=== PATIENT | female | born 1985 | race Caucasian/White ===

== ENCOUNTER 2024-03-10 07:32 | Outpatient (CLI) | payer MEDICAID ==
--- NOTE | 2024-03-10 19:21 | Ultrasound Report ---
PROCEDURE: Abdomen Complete INDICATIONS: LOWER ABD PAIN TECHNIQUE: Real-time scanning was performed of the abdominal and retroperitoneal organs, with image documentatio n. COMPARISON: Pelvic ultrasound from the same date. FINDINGS: Liver: There are multiple probable liver hemangiomata. These are echogenic foci with increased throu gh transmission. A right lobe liver lesion measures 1.4 cm. A second right lobe liver lesion measures 2.8 cm. Gallbladder: Multiple nonshadowing immobile luminal lesions are consistent with polyps. The largest g allbladder polyp is 0.8 cm. Biliary ducts: Intrahepatic bile ducts are non-dilated. Extrahepatic bile duct caliber measures 5 m m. Normal is 6-7 mm or less in diameter, or 10 mm or less post-cholecystectomy. Pancreas: Visualized portions of the pancreas are sonographically normal. Spleen: Spleen is normal in size and homogeneous in echotexture. Kidneys: Kidneys are normal in size and echotexture. Right kidney measures 10.9 cm long; left kidne y measures 10.8 cm long. No hydronephrosis or nephrolithiasis. No solid masses. No complex renal cy stic lesions which require follow-up. Aorta: Visualized aorta is normal in caliber at less than 2 cm. Iliacs: Proximal common iliac arteries are normal in caliber at less than 1 cm. IVC: Intrahepatic inferior vena cava is patent. Miscellaneous: There is a pelvic mass which likely represents a very large exophytic or pedunculated uterine fibroid measuring approximately 6.5 x 8.9 x 6.0 cm. IMPRESSION: 1. Multiple probable liver hemangiomata. 2. Very large probable pedunculated uterine fibroid. Please refer to separate report. 3. Multiple probable bladder polyps, the largest of which is 0.8 cm. Comment: Please refer to separate report for pelvic ultrasound findings. Recommend follow-up right up per quadrant ultrasound in 12 months for the gallbladder polyps based on size of the largest polyp be ing 0.8 cm. Reviewed by: Steve Presley MD on 03/10/2024 7:20 PM PDT Approved by: Steve Presley MD on 03/10/2024 7:20 PM PDT Station ID: [id number]
--- NOTE | 2024-03-11 08:15 | Ultrasound Report ---
PROCEDURE: Pelvic w/Transvaginal INDICATIONS: LOWER ABD PAIN TECHNIQUE: Real-time scanning was performed of the pelvic organs, with image documentation. Additional endovagi nal scanning was necessary due to incomplete visualization of the adnexal and endometrial structures by transabdominal scanning. COMPARISON: None. FINDINGS: Uterus: Uterus is anteverted and borderline in size at 10.2 x 4.7 x 4.8 cm. The myometrium is heter ogeneous. The endometrium measures 6 mm in combined thickness. Multiple uterine fibroids. -Right anterior pedunculated subserosal fibroid measures 6.5 x 3.9 x 6.0 cm. -Left anterior subserosal fibroid measures 1.6 x 1.6 x 1.5 cm. -Left anterior intramural fibroid measures 1.6 x 1.6 x 1.2 cm. Ovaries: The right ovary measures 4.0 x 1.5 x 1.8 cm, with a calculated ovarian volume of 5.6 cc. T he left ovary measures 3.3 x 1.4 x 2.3 cm, with a calculated ovarian volume of 5.4 cc. The ovaries h ave a normal sonographic appearance. Less than 12 follicles can be seen in each ovary. A left adnexa l paraovarian cyst measures 0.9 x 0.7 x 0.8 cm. No cystic lesions measuring greater than 3 cm. Other: Small amount of free fluid is seen in the right adnexa adjacent to the pedunculated fibroid. IMPRESSION: Large pedunculated fibroid at the right anterior fundal region measuring up to 6.5 cm. Additional sma ller intramural and subserosal fibroids. Small amount of adjacent free fluid. Reviewed by: Mani Elizabeth MD on 03/11/2024 8:14 AM PDT Approved by: Mani Elizabeth MD on 03/11/2024 8:14 AM PDT Station ID: [id number]
== END 2024-03-10 07:33 | disposition home or self-care (01) ==
LOC: DI 07:32
PROVIDERS: ATTEND Nurse Practitioner Acute Care
DX: D25.2 Subserosal leiomyoma of uterus (principal); D25.1 Intramural leiomyoma of uterus; D25.9 Leiomyoma of uterus, unspecified

== ENCOUNTER 2024-04-21 14:11 | Outpatient (CLI) | payer MEDICAID | END 2024-04-21 14:12 | disposition home or self-care (01) | LOC: DI 14:11 | PROVIDERS: ATTEND Nurse Practitioner Acute Care | DX: R07.89 Other chest pain (principal) | CPT/HCPCS: 93307 ==